=== PATIENT | female | born 1960 | race Caucasian/White ===

== ENCOUNTER 2016-11-30 18:54 | Inpatient (IN) | payer MEDICARE, OTHER, MEDICAID ==
[~2016-11-30] VITALS: Ht 160 cm; Wt 118.4 kg
[2016-11-30] VITALS (8 sets, daily range): BP systolic 107–180; BP diastolic 52–113
[~2016-11-30 18:54] MED LIST: BENAZEPRIL; UNKNOWN MEDS
[2016-11-30] MEDS ORDERED: ONDANSETRON HCL 4MG/2ML VIAL IV PRN (20:45)
[2016-11-30] MEDS ORDERED: CLONIDINE 0.1MG TABLET PO PRN (20:45)
[2016-11-30] MEDS ORDERED: MORPHINE SULFATE 10 MG/ML CPJ IV PRN (20:46)
[2016-11-30 21:06] LABS: BG CARBOXYHEMOGLOBIN 0.3 % (0.5-1.5); BG DEOXYHEMOGLOBIN 3.4 % (0.0-5.0); BG FRACTION INSPIRED OXYGEN 35; BG HCO3 ACT 27.2 mmol/L (22.0-26.0); BG METHEMOGLOBIN 0.2 % (0.0-1.5); BG OXYGEN SATURATION 96.6 % (92.0-98.5); BG OXYHEMOGLOBIN 96.1 % (94.0-97.0); BG PCO2 40.1 mmHg (35.0-45.0); BG PH 7.449 (7.350-7.450); BG PO2 87.3 mmHg (75.0-100.0); BG SAMPLE SITE LEFT RADIAL; BG TIDAL VOLUME(mL) 550 mL; BG TOTAL HEMOGLOBIN 12.9 g/dL (12.0-18.0); BG VENT MODE VENT - A/C; BG VENT RATE 14 set
[2016-11-30 22:06] LABS: HEMATOCRIT. 36.6 % (36.0-48.0); HEMOGLOBIN. 12.3 g/dL (12.0-16.0); MEAN CORPUSCULAR HEMOGLOBIN 29.9 pg (28.0-32.0); MEAN CORPUSCULAR VOLUME 88.8 fL (81.0-99.0); MEAN PLATELET VOLUME 9.3 fl (7.4-10.4); PLATELET 176 x1000/uL (130-400); RED BLOOD CELL COUNT 4.13 mill/uL (4.2-5.4); RED CELL DISTRIBUTION WIDTH 14.7 % (11.6-14.6)
[2016-11-30 22:18] LABS: CARBON DIOXIDE 25 mEq/L (21-32); CHLORIDE 107 mEq/L (98-107)
[2016-11-30 22:20] LABS: CLARITY URINE CLEAR (CLEAR); COLOR URINE YELLOW (YELLOW); GLUCOSE URINE TRACE (NEGATIVE); KETONES URINE NEGATIVE (NEGATIVE); LEUKOCYTE ESTERASE URINE NEGATIVE (NEGATIVE); NITRITE URINE NEGATIVE (NEGATIVE); OCCULT BLOOD URINE 2+ (NEGATIVE); PROTEIN URINE TRACE (NEGATIVE); SPECIFIC GRAVITY URINE 1.016 (1.005-1.030)
[2016-11-30] MEDS ORDERED: ENOXAPARIN 30MG/0.3ML SYR SUBCUT SCH (22:30)
[2016-11-30 22:51] LABS: PLATELET ESTIMATE NORMAL
[2016-11-30] MEDS: DEXT 5%/0.45% NACL 1000ML 1,000 ML IV SCH (22:54)
[2016-11-30] MEDS ORDERED: LORAZEPAM 2MG/ML CPJ IV PRN (23:30)
[2016-11-30] MEDS ORDERED: POTASSIUM CHLORIDE INJ 40 MEQ in DEXT 5% WATER 250 ML IV NR (23:30)
[2016-11-30] MEDS ORDERED: DEXTROSE 50% WATER 50ML SYRINGE IV PRN (23:30)
[2016-12-01] VITALS (33 sets, daily range): BP systolic 103–167; BP diastolic 46–97
[2016-12-01] MEDS: PIPERACILLIN/TAZ 3.375G PREMIX 50 ML IV SCH ×2 (00:06→05:10)
[2016-12-01] MEDS: INSULIN LISPRO 100 UNITS/ML SUBCUT SCH ×5 (00:13→23:38)
[2016-12-01] MEDS: BLOOD SUGAR DIAGNOSTIC STRIP TEST SCH ×5 (00:13→23:38)
[2016-12-01] MEDS ORDERED: GABA300C PO (04:20)
[2016-12-01] MEDS ORDERED: GLIP5TAB12 PO (04:20)
[2016-12-01] MEDS ORDERED: HYDR12.54 PO (04:21)
[2016-12-01] MEDS ORDERED: METF10002 PO (04:21)
[2016-12-01] MEDS ORDERED: SIMV10TA2 PO (04:22)
[2016-12-01] MEDS ORDERED: AMLO5TAB4 PO (04:22)
[2016-12-01] MEDS: ACETAMINOPHEN 650MG SUPP PR PRN ×2 (04:25→12:34)
[2016-12-01 06:05] LABS: BASOPHILS % 0.2 % (0.0-2.0); EOSINOPHILS % 0.4 % (0.0-5.0); HEMATOCRIT. 36.1 % (36.0-48.0); HEMOGLOBIN. 12.2 g/dL (12.0-16.0); LYMPHOCYTES % 7.4 % (20.0-50.0); MEAN CORPUSCULAR HEMOGLOBIN 30.3 pg (28.0-32.0); MEAN CORPUSCULAR VOLUME 89.7 fL (81.0-99.0); MONOCYTES % 7.2 % (2.0-8.0); NEUTROPHILS % 84.8 % (40.0-76.0); PLATELET 175 x1000/uL (130-400); RED BLOOD CELL COUNT 4.02 mill/uL (4.2-5.4); RED CELL DISTRIBUTION WIDTH 14.9 % (11.6-14.6)
[2016-12-01 06:30] LABS: CARBON DIOXIDE 25 mEq/L (21-32); CHLORIDE 106 mEq/L (98-107); HDL CHOLESTEROL 54 mg/dL (40-59); LDL CHOLESTEROL 117 mg/dL (5-100)
[2016-12-01 06:34] LABS: INR 1.1
[2016-12-01 07:24] LABS: BG BASE EXCESS 1.8 mmol/L (-2.0-2.0); BG CARBOXYHEMOGLOBIN 0.3 % (0.5-1.5); BG DEOXYHEMOGLOBIN 2.5 % (0.0-5.0); BG HCO3 ACT 25.7 mmol/L (22.0-26.0); BG METHEMOGLOBIN 0.1 % (0.0-1.5); BG OXYGEN SATURATION 97.5 % (92.0-98.5); BG OXYHEMOGLOBIN 97.1 % (94.0-97.0); BG PCO2 37.8 mmHg (35.0-45.0); BG PO2 99.9 mmHg (75.0-100.0); BG SAMPLE SITE RIGHT BRACHIAL; BG TIDAL VOLUME(mL) 500 mL; BG TOTAL HEMOGLOBIN 12.2 g/dL (12.0-18.0); BG VENT MODE VENT - A/C; BG VENT RATE 14 set
[2016-12-01] MEDS: PANTOPRAZOLE SODIUM 40 MG/VIAL IV SCH (08:57)
[2016-12-01] MEDS: DEXT 5%/0.45% NACL 1000ML 1,000 ML IV SCH ×2 (10:55→23:37)
[2016-12-01 12:13] LABS: BG BASE EXCESS 2.3 mmol/L (-2.0-2.0); BG CARBOXYHEMOGLOBIN 0.6 % (0.5-1.5); BG CPAP (cmH2O) 0 cm(H2O); BG DEOXYHEMOGLOBIN 3.1 % (0.0-5.0); BG HCO3 ACT 26.4 mmol/L (22.0-26.0); BG METHEMOGLOBIN 0.1 % (0.0-1.5); BG OXYGEN SATURATION 96.9 % (92.0-98.5); BG OXYHEMOGLOBIN 96.2 % (94.0-97.0); BG PCO2 39.1 mmHg (35.0-45.0); BG PH 7.447 (7.350-7.450); BG SAMPLE SITE RIGHT BRACHIAL; BG TOTAL HEMOGLOBIN 12.5 g/dL (12.0-18.0); BG VENT MODE VENT - CPAP
[2016-12-01] MEDS: METRONIDAZOLE 500 MG PREMIX 100 ML IV SCH ×2 (12:34→22:23)
[2016-12-01] MEDS: CEFEPIME 2,000 MG in DEXT 5% WATER 100 ML IV SCH ×2 (13:27→21:23)
[2016-12-02] VITALS (25 sets, daily range): BP systolic 98–161; BP diastolic 18–121
[2016-12-02] MEDS: BLOOD SUGAR DIAGNOSTIC STRIP TEST SCH ×3 (05:38→17:10)
[2016-12-02] MEDS: INSULIN LISPRO 100 UNITS/ML SUBCUT SCH ×3 (05:38→17:48)
[2016-12-02] MEDS: METRONIDAZOLE 500 MG PREMIX 100 ML IV SCH ×3 (05:42→22:02)
[2016-12-02 05:58] LABS: BASOPHILS % 0.3 % (0.0-2.0); EOSINOPHILS % 1.3 % (0.0-5.0); HEMATOCRIT. 36.1 % (36.0-48.0); HEMOGLOBIN. 12.1 g/dL (12.0-16.0); INR 1.1; LYMPHOCYTES % 8.4 % (20.0-50.0); MEAN CORPUSCULAR VOLUME 89.6 fL (81.0-99.0); MEAN PLATELET VOLUME 10.1 fl (7.4-10.4); MONOCYTES % 6.5 % (2.0-8.0); NEUTROPHILS % 83.5 % (40.0-76.0); PARTIAL THROMBOPLASTIN TIME 27.8 sec (23.4-31.0); PLATELET 169 x1000/uL (130-400); RED BLOOD CELL COUNT 4.03 mill/uL (4.2-5.4); RED CELL DISTRIBUTION WIDTH 14.3 % (11.6-14.6)
[2016-12-02 06:37] LABS: CHLORIDE 104 mEq/L (98-107)
[2016-12-02 06:42] LABS: CARBON DIOXIDE 25 mEq/L (21-32)
[2016-12-02] MEDS: PANTOPRAZOLE SODIUM 40 MG/VIAL IV SCH (08:02)
[2016-12-02] MEDS: CEFEPIME 2,000 MG in DEXT 5% WATER 100 ML IV SCH ×2 (08:02→20:11)
[2016-12-02] MEDS ORDERED: IPRATROPIUM/ALBUTEROL 0.5-3(2.5)MG/3ML NEB HHN PRN (10:00)
[2016-12-02] MEDS ORDERED: MIDAZOLAM HCL 5 MG/5 ML VIAL ONE (10:11)
[2016-12-02] MEDS ORDERED: FENTANYL CITRATE/PF 50MCG/ML 2ML VIAL ONE (10:12)
[2016-12-02] MEDS ORDERED: FENTANYL CITRATE/PF 50MCG/ML 2ML VIAL IV PRN (11:03)
[2016-12-02] MEDS ORDERED: MIDAZOLAM HCL 2 MG/2 ML VIAL IV PRN (11:03)
[2016-12-02] MEDS ORDERED: SODIUM CHLORIDE 0.9% 10ML VIAL ONE (11:18)
[2016-12-02] MEDS ORDERED: SIMETHICONE 40 MG/0.6 ML 30ML ONE (11:18)
[2016-12-02] MEDS: IPRATROPIUM/ALBUTEROL 0.5-3(2.5)MG/3ML NEB HHN SCH ×2 (13:13→20:43)
[2016-12-02] MEDS: ACETAMINOPHEN 650MG SUPP PR PRN (20:11)
[2016-12-02] MEDS: DEXT 5%/0.45% NACL 1000ML 1,000 ML IV SCH (20:20)
[2016-12-03] VITALS: BP 114/49
[2016-12-03] MEDS: IPRATROPIUM/ALBUTEROL 0.5-3(2.5)MG/3ML NEB HHN SCH ×3 (02:18→20:53)
[2016-12-03 04:00] VITALS: BP 104/50
[2016-12-03] MEDS: METRONIDAZOLE 500 MG PREMIX 100 ML IV SCH ×3 (06:04→22:34)
[2016-12-03] MEDS: BLOOD SUGAR DIAGNOSTIC STRIP TEST SCH ×4 (06:05→21:09)
[2016-12-03] MEDS: INSULIN LISPRO 100 UNITS/ML SUBCUT SCH ×4 (06:13→21:08)
[2016-12-03 06:14] LABS: BASOPHILS % 0.4 % (0.0-2.0); EOSINOPHILS % 2.6 % (0.0-5.0); HEMATOCRIT. 33.4 % (36.0-48.0); HEMOGLOBIN. 11.1 g/dL (12.0-16.0); MEAN PLATELET VOLUME 10.1 fl (7.4-10.4); MONOCYTES % 8.3 % (2.0-8.0); NEUTROPHILS % 73.7 % (40.0-76.0); PLATELET 151 x1000/uL (130-400); RED BLOOD CELL COUNT 3.72 mill/uL (4.2-5.4); RED CELL DISTRIBUTION WIDTH 14.3 % (11.6-14.6)
[2016-12-03 07:50] LABS: CARBON DIOXIDE 28 mEq/L (21-32); CHLORIDE 104 mEq/L (98-107)
[2016-12-03 08:00] VITALS: BP 113/50
[2016-12-03] MEDS: PANTOPRAZOLE SODIUM 40 MG/VIAL IV SCH (09:05)
[2016-12-03] MEDS: CEFEPIME 2,000 MG in DEXT 5% WATER 100 ML IV SCH ×2 (09:05→20:57)
[2016-12-03 12:00] VITALS: BP 120/59
[2016-12-03] MEDS ORDERED: LACTULOSE 20G/30ML UDC PO NR (15:30)
[2016-12-03] MEDS ORDERED: NA PHOS,M-B/NA PHOS,DI-BA ENEMA 118ML PR PRN (15:30)
[2016-12-03 16:00] VITALS: BP 120/62
[2016-12-03 20:00] VITALS: BP 140/61
[2016-12-04] VITALS: BP 130/64
[2016-12-04 04:00] VITALS: BP 139/69
[2016-12-04] MEDS: METRONIDAZOLE 500 MG PREMIX 100 ML IV SCH (05:27)
[2016-12-04 07:06] LABS: BASOPHILS % 0.5 % (0.0-2.0); EOSINOPHILS % 4.1 % (0.0-5.0); HEMATOCRIT. 32.7 % (36.0-48.0); LYMPHOCYTES % 17.9 % (20.0-50.0); MEAN CORPUSCULAR HEMOGLOBIN 29.9 pg (28.0-32.0); MEAN CORPUSCULAR VOLUME 89.3 fL (81.0-99.0); MEAN PLATELET VOLUME 9.2 fl (7.4-10.4); MONOCYTES % 9.3 % (2.0-8.0); NEUTROPHILS % 68.2 % (40.0-76.0); PLATELET 180 x1000/uL (130-400); RED BLOOD CELL COUNT 3.66 mill/uL (4.2-5.4); RED CELL DISTRIBUTION WIDTH 14.1 % (11.6-14.6)
[2016-12-04] MEDS: INSULIN LISPRO 100 UNITS/ML SUBCUT SCH (07:35)
[2016-12-04] MEDS: BLOOD SUGAR DIAGNOSTIC STRIP TEST SCH ×2 (07:35→12:24)
[2016-12-04 07:53] LABS: CARBON DIOXIDE 27 mEq/L (21-32); CHLORIDE 105 mEq/L (98-107)
[2016-12-04 08:00] VITALS: BP 139/63
[2016-12-04] MEDS: PANTOPRAZOLE SODIUM 40 MG/VIAL IV SCH (09:08)
[2016-12-04] MEDS: CEFEPIME 2,000 MG in DEXT 5% WATER 100 ML IV SCH (09:08)
[2016-12-04 09:56] VITALS: BP 139/63
[2016-12-04 11:58] VITALS: BP 147/74
[2016-12-04] MEDS ORDERED: METRONIDAZOLE 500MG TABLET PO SCH (15:00)
[2016-12-05] MEDS ORDERED: FAMOTIDINE 20MG TABLET PO SCH (09:00)
== END 2016-12-04 14:10 | disposition home or self-care (01) | DRG 208 ==
LOC: CVICU 18:54 → 7WST 12-02 23:52
PROVIDERS: ADMIT Internal Medicine Nephrology; ATTEND Internal Medicine Nephrology
PROC: 5A1945Z Respiratory Ventilation, 24-96 Consecutive Hours (ICD-10-PCS; principal; 2016-11-30)
PROC: 0BH17EZ Insertion of Endotracheal Airway into Trachea, Via Natural or Artificial Opening (ICD-10-PCS; 2016-11-30)
PROC: 0DC58ZZ Extirpation of Matter from Esophagus, Via Natural or Artificial Opening Endoscopic (ICD-10-PCS; 2016-12-02)
DX: J96.00 Acute respiratory failure, unspecified whether with hypoxia or hypercapnia (principal); E46 Unspecified protein-calorie malnutrition; E66.01 Morbid (severe) obesity due to excess calories; T18.128A Food in esophagus causing other injury, initial encounter; Z68.42 Body mass index [BMI] 45.0-49.9, adult; D72.829 Elevated white blood cell count, unspecified; E11.9 Type 2 diabetes mellitus without complications; E78.5 Hyperlipidemia, unspecified; F32.9 Major depressive disorder, single episode, unspecified; X58.XXXA Exposure to other specified factors, initial encounter; R62.50 Unspecified lack of expected normal physiological development in childhood; I10 Essential (primary) hypertension; K44.9 Diaphragmatic hernia without obstruction or gangrene; Z90.49 Acquired absence of other specified parts of digestive tract; Z91.5 Personal history of self-harm; Y93.89 Activity, other specified; Y92.89 Other specified places as the place of occurrence of the external cause; Y99.8 Other external cause status
CPT/HCPCS: 36415; 36600; 71010; 74176; 80048; 80053; 80061; 81001; 82375; 82805; 82962; 84484; 85025; 85610; 85730; 87040; 87070; 87077; 87086; 93970; 94002; 94003; 94640; 94664; 97162; A4216; A6261; C1893; C9113; J0692; J1650; J1815; J2250; J2270; J2543; J3010; J3480; J3490; J7050; J7060; J7620; A4315